=== PATIENT | female | born 1985 | race Caucasian/White ===

== ENCOUNTER 2022-10-15 21:21 | Emergency (ER) | payer BC, SELFPAY ==
[2022-10-15] VITALS (7 sets, daily range): BP systolic 117–128; BP diastolic 74–84; PULSE 94–114; RESP 16; TEMP 36.7–36.9; O2SAT 97–99
[2022-10-15] MEDS: 0.9 % SODIUM CHLORIDE 1000 ml 1,000 ML IV (22:00)
[2022-10-15] MEDS: ONDANSETRON 2 MG/ML inj 4 MG IVP (22:05)
[2022-10-15] MEDS: LORazepam 2 MG/ML inj 0.5 MG IVP (22:07)
[2022-10-15] MEDS: KETOROLAC 30 MG/ML inj IVP (22:10)
[2022-10-15] MEDS: KETAMINE HCL 20 MG in 0.9 % SODIUM CHLORIDE 100 ml 100 ML 300.6 MG IVPB (22:48)
--- NOTE | 2022-10-15 22:54 | ED.SOB ---
HPI - SOB/Dyspnea General Chief Complaint: Shortness of Breath/Dyspnea Stated Complaint: shortness of breath Time Seen by Provider: 10/15/22 21:28 History of Present Illness HPI Narrative: 37-year-old woman presenting to the emergency department via EMS she says that was called by her Irvin . Sounds like there might be underlying history of exercise-induced asthma. This evening became increasingly short of breath and could not find inhaler. They have moved recently. EMS provided oxygen and albuterol nebulizer she says and she has improved quite a bit. Seems to indicate that this event was triggered in part by trying to set up more humidified air? Was noted to be increasing her own oxygen that was applied on arrival here in the ER though accidents saturations at 97% on room air. She notes that over the last few days have been with ?SpO2 of 93%? Has had a headache over the last week and then 3 days ago tested positive for COVID which has also included or corresponded with 3 days of body aches some nausea, diarrhea? Though notes an underlying history of irritable bowel. Had high fevers. Had COVID earlier on in the days of COVID was very uncomfortable then as well. She does admit she would like treatment for her headache and aches. Feels like she is getting stabbed in the mid forehead and behind her eyes. Conversation is heavy with cussing. Works as a [employer]. Related Data Home Medications Medication Instructions Recorded Confirmed bupropion HCl 300 mg 24 hr tablet, tab PO 08/25/22 08/25/22 extended release clonazepam 1 mg tablet 1 mg PO 08/25/22 08/25/22 methylphenidate HCl 5 mg tablet 5 mg PO 08/25/22 08/25/22 pramipexole 0.25 mg tablet 0.25 mg PO 08/25/22 08/25/22 Previous Rx's Medication Instructions Recorded methocarbamol 500 mg tablet 500 mg PO TID #10 tabs 08/25/22 Allergies Allergy/AdvReac Type Severity Reaction Status Date / Time Opioids - Morphine Analogues Allergy Mild Hives Verified 08/25/22 16:52 Review of Systems Status of ROS: Reports: 6 or more systems reviewed and unremarkable except as noted in History and below [facility] Medical History Anxiety Depression History of flexible sigmoidoscopy Insomnia Migraine PTSD (post-traumatic stress disorder) Restless legs syndrome Shingles Ulcerative colitis Surgical History History of breast augmentation History of colonoscopy History of hemorrhoidectomy History of nasal septoplasty History of tonsillectomy History of wisdom tooth extraction Social History Smoking Status: Current every day smoker Second hand tobacco smoke exposure: No How often do you have a drink containing alcohol: 2-3 times a week How many standard drinks containing alcohol do you have on a typical day: 3 or 4 How often do you have six or more drinks on one occasion: Weekly AUDIT-C Alcohol total score: 7 Non-prescribed substance use: denies use Exam Narrative: Exam Narrative: Animated. Pleasant. Intense. Skin is warm dry. Extremities without edema. Moving all extremities without difficulty, good strength. Well perfused. Appears to be breathing easily. When I initially enter she is leaning forward in the bed with her head in her hands. Periodically placing hands to forehead in apparent pain. Cranial nerves 2-12 look to be intact. Neck is supple. Lungs are clear. Heart in an elevated rate and regular rhythm. Const: Vital Signs, click to edit/add: Vital Signs - 24 hr 10/15/22 21:18 10/15/22 22:10 10/15/22 23:15 Temperature 98.4 F 98.0 F 98.0 F Pulse Rate [Left P ulse Oximeter] 114 H Respiratory Rate 16 Blood Pressure [Ri ght Upper Arm] 124/84 Pulse Oximetry 97 Oxygen Delivery Me thod Room Air 10/15/22 22:00 10/15/22 22:30 10/15/22 23:00 Temperature 98.0 F 98.0 F 98.2 F Pulse Rate [Left P ulse Oximeter] 110 H 105 H 95 Respiratory Rate 16 16 16 Blood Pressure [Ri ght Upper Arm] 117/79 121/74 124/74 Pulse Oximetry 97 97 97 Oxygen Delivery Me thod Room Air Room Air Room Air 10/15/22 23:58 10/15/22 22:00 10/16/22 00:35 Temperature 98.0 F 98.0 F Pulse Rate [Left P ulse Oximeter] 94 94 Respiratory Rate 16 16 Blood Pressure [Ri ght Upper Arm] 128/84 128/84 Pulse Oximetry 97 99 Oxygen Delivery Me thod Room Air Documenting provider has reviewed patient's vital signs: yes Course Vital Signs Vital signs: Initial Vital Signs Temperature 98.4 F 10/15/22 21:18 Temperature Source Temporal Artery Scan 10/15/22 21:18 Pulse Rate 114 H 10/15/22 21:18 Respiratory Rate 16 10/15/22 21:18 Blood Pressure 124/84 10/15/22 21:18 Blood Pressure Mean 97 10/15/22 21:18 Blood Pressure Position Sitting 10/15/22 21:18 Pulse Oximetry 97 10/15/22 21:18 Oxygen Delivery Method 10/15/22 21:18 Vital Signs Temperature 98.4 F 10/15/22 21:18 Pulse Rate 114 H 10/15/22 21:18 Respiratory Rate 16 10/15/22 21:18 Blood Pressure 124/84 10/15/22 21:18 Pulse Oximetry 97 10/15/22 21:18 Oxygen Delivery Method 10/15/22 21:18 Temperature 98.0 F 10/16/22 00:35 Pulse Rate 94 10/16/22 00:35 Respiratory Rate 16 10/16/22 00:35 Blood Pressure 128/84 10/16/22 00:35 Pulse Oximetry 97 10/15/22 23:58 Oxygen Delivery Method 10/15/22 23:58 MDM - SOB/Dyspnea MDM Narrative Medical decision making narrative: Appears to be well from a respiratory standpoint at this point. I do offer treatment for headache. She would like to proceed with that. We discussed options. She suspects that NSAIDs will not be helpful but that gets a rash with opiates. I discussed ketamine as possibility which she would like to proceed with. I encouraged IV fluids and NSAIDs and going to ketamine then if necessary. IVs established receives a L of normal saline ketorolac and Zofran and lorazepam as does appear rather anxious about all of this. 20-25 minutes later is requesting ketamine. Prepared for this but encourage waiting to about 45 minutes to better evaluate effective ketorolac. Still complaining of pain. Therefore was initiated on ketamine pain dose. Nearly immediately after initiation as come planing of severe pain like her headed been sheared off. I go to evaluate. At this point though does not appear to be in distress. Is seemingly more relaxed and chatty. Contemplating departure. She received very little ketamine. Has been ill for too long time to benefit I think at this point from antivirals for COVID. Later describes how has been having so much difficulty sleeping. She would like a sleep aid. I discussed potential benefit of Zyprexa. 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 Will be sent with 2 tabs of Zyprexa. Medical Records Attestation: I reviewed the patient's medical records. Discharge Plan Discharge Clinical Impression: COVID-19, Reactive airway disease, Headache Patient Disposition: Home w/ Parent or Adult Condition: Improved Additional Instructions: Focus on hydration. If does not aggravate your stomach, can take up to 800 mg of ibuprofen or up to 1000 mg of acetaminophen per dose. Alternative to the ibuprofen might be up to 500 mg naproxen 2 times daily. Regarding the Zyprexa if really needed for sleep, take 1 tablet and repeat in 1 maybe 1-1/2 hours if still awake. I would not take anymore of your benzodiazepine tonight. Prescriptions: No Action bupropion HCl 300 mg tablet extended release 24 hr PO clonazepam 1 mg tablet 1 mg PO Label Comments: TAKE 1 AND 1/2 TABLETS BY MOUTH DAILY NEEDED FOR SLEEP OR ANXIETY methylphenidate HCl 5 mg tablet 5 mg PO Label Comments: TAKE 1 TABLET BY MOUTH TWICE DAILY pramipexole 0.25 mg tablet 0.25 mg PO methocarbamol 500 mg tablet 500 mg PO TID Qty: 10 0RF Follow Up/Referrals: Provider,Not a Local [Primary Care Provider] - Stand Alone Forms: [employer] Info Instructions
[2022-10-16 00:35] VITALS: BP 128/84; PULSE 94; RESP 16; TEMP 36.7
== END 2022-10-16 00:36 | disposition home or self-care (01) ==
PROVIDERS: Emergency Provider Family Medicine
DX: U07.1 COVID-19 (principal); J45.901 Unspecified asthma with (acute) exacerbation; R51.9 Headache, unspecified
CPT/HCPCS: 94761; 96365; 96375; 99284; J1885; J2060; J2405; J3490; J7030

== ENCOUNTER 2023-01-19 15:32 | Emergency (ER) | payer BC, SELFPAY ==
[2023-01-19 15:37] VITALS: BP 125/80; PULSE 90; RESP 20; TEMP 37.1; O2SAT 96; BMI 20.6
--- NOTE | 2023-01-19 15:41 | CRLHL7_ITS ---
For Patients: As a result of the Century Cures Act, medical imaging exams and procedure reports are released immediately into your electronic medical record. You may view this report before your referring provider. If you have questions, please contact your health care provider. INDICATION: Left-sided chest pain. TECHNIQUE: Chest 1 view. COMPARISON: 01/20/2021. FINDINGS: Cardiovascular and mediastinum: Heart size and vasculature are normal in caliber and appearance. Lungs and pleural spaces: Lung volumes are low. No sign of infiltrate or mass. No sign of pleural effusion. No pneumothorax. Bones and soft tissues: No significant findings. IMPRESSION: Low lung volumes with otherwise no evidence acute cardiopulmonary abnormality. Dictated by Lemuel Gordon MD @ 01/19/2023 4:40:39 PM (Electronically Signed)
[2023-01-19 15:57] LABS: Basophils Absolute Auto 0.01 K/uL (0.00-0.30); Basophils Percent Auto 0.1 % (0.0-3.0); Eosinophils Absolute Auto 0.11 K/uL (0.00-0.50); Hematocrit 36.9 % (33.0-51.0); Immature Granulocytes Abs Auto 0.05 K/uL (0.00-0.30); Immature Granulocytes Pct Auto 0.5 %; Lymphocytes Absolute Auto 2.36 K/uL (0.90-2.90); Lymphocytes Percent Auto 22.4 % (20-44); Mean Corpuscular HGB Conc 30 gm/dL (32-36); Mean Corpuscular Hemoglobin 27 pg (26-34); Mean Corpuscular Volume 90 fL (80-100); Monocytes Percent Auto 9.1 % (0.0-11.0); Neutrophils Absolute Auto 7.04 K/uL (1.7-7.0); Neutrophils Percent Auto 66.9 % (42.0-72.0); Platelet Count* 285 K/uL (140-440); RDW Coefficient of Variation % 22.2 % (11.5-15.5); Red Blood Count 4.09 m/uL (4.00-5.20); White Blood Count* 10.53 K/uL (4.50-11.00)
[2023-01-19 15:59] LABS: Lactate* 0.9 mmol/L (0.5-1.9)
[2023-01-19 16:00] LABS: Slide Review Reflex No
[2023-01-19 16:01] VITALS: BP 111/69
[2023-01-19] MEDS: HYDROmorphone 0.5 mg/0.5 ml inj IVP (16:01)
[2023-01-19] MEDS: 0.9 % SODIUM CHLORIDE 1000 ml 1,000 ML IV (16:02)
[2023-01-19] MEDS: KETOROLAC 30 MG/ML inj IVP (16:02)
[2023-01-19] MEDS: ONDANSETRON 2 MG/ML inj 4 MG IVP (16:02)
[2023-01-19 16:18] LABS: Albumin* 3.5 g/dL (3.3-5.0); Chloride* 103 mmol/L (96-114); Sodium* 133 mmol/L (135-149)
[2023-01-19 16:20] LABS: Creatinine* 0.5 mg/dL (0.5-1.5); Estimated Glomerular Filt Rate 122 ml/min
[2023-01-19 16:21] LABS: Alkaline Phosphatase* 59 U/L (40-150); Aspartate Amino Transferase* 18 U/L (12-35); Bilirubin Direct* 0.1 mg/dL (0.0-0.5); Bilirubin Total* 0.4 mg/dL (0.1-1.5); Blood Urea Nitrogen* 12 mg/dL (5-24); Carbon Dioxide* 26 mmol/L (20-32); Glucose* 96 mg/dL (60-115); Lipase* 21 U/L (23-300); Total Protein* 6.2 g/dL (6.0-8.3)
[2023-01-19 16:22] LABS: Alanine Aminotransferase* 42 U/L (4-35); Calcium* 8.5 mg/dL (8.4-10.6)
[2023-01-19 16:30] LABS: INR 0.91 (0.91-1.10); Prothrombin Time 12.8 Seconds
[2023-01-19 16:31] VITALS: BP 110/69
[2023-01-19 16:31] LABS: Partial Thromboplastin Time* 25 Seconds (23-33)
[2023-01-19 16:33] LABS: NT Pro B Type NatriureticPept* 67 pg/mL
--- NOTE | 2023-01-19 16:36 | ED_ITS ---
HPI - General Adult General Date Seen: 01/19/23 Chief complaint: Back Injury/Pain Stated complaint: Allergic Reaction Time Seen by Provider: 01/19/23 15:44 Source: patient and family Mode of arrival: ambulatory Limitations: no limitations History of Present Illness HPI narrative: Patient is a 37-year-old female with a recent discharge from [facility], events here with left-sided chest discomfort, this started off yesterday, is gradually been progressing, she notices the pain whenever she twists turns, but initially came in telling me she has have an anaphylactic reaction to Remicade. She started the Remicade on the , this was for ulcerative colitis, after she was hospitalized there and early December and also late December and discharged on the from [facility]. She was seen by Gastroenterology, also treated for a pulmonary embolism that occurred early in December, has been on b.i.d. treatment with Lovenox since. There is no evidence of a DVT on ultrasounds at that time. She was discharged from the hospital on the , and came to our emergency room, because it is closer, and the wait time is not so bad. Denies any hemoptysis fevers chills nausea vomiting. I am able to review the notes from admission and discharge from [facility] No history of cardiac disease, she has been taking her Lovenox faithfully, she has exhausted her supply of oxycodone that she is given at the hospital. Location: chest Radiation: non-radiation Severity: severe Quality: stabbing Pain Consistency: constant Relieving factors: none Exacerbating factors: none Associated symptoms: denies other symptoms Treatments prior to arrival: none Related Data Home Medications Medication Instructions Recorded Confirmed bupropion HCl 300 mg 24 hr tablet, tab PO 08/25/22 08/25/22 extended release clonazepam 1 mg tablet 1 mg PO 08/25/22 08/25/22 methylphenidate HCl 5 mg tablet 5 mg PO 08/25/22 08/25/22 pramipexole 0.25 mg tablet 0.25 mg PO 08/25/22 08/25/22 enoxaparin 60 mg/0.6 mL mg subcut 01/19/23 subcutaneous syringe oxycodone-acetaminophen 5 mg-325 1 tab PO QID PRN 01/19/23 01/19/23 mg tablet paroxetine HCl 20 mg tablet 20 mg PO QAM 01/19/23 01/19/23 prednisone 10 mg tablet PO 01/19/23 Previous Rx's Medication Instructions Recorded methocarbamol 500 mg tablet 500 mg PO TID #10 tabs 08/25/22 albuterol sulfate 90 mcg/actuation 2 puff inhalation QID PRN 10/16/22 aerosol inhaler shortness of breath or wheezing #8.5 grams Allergies Allergy/AdvReac Type Severity Reaction Status Date / Time Opioids - Morphine Analogues Allergy Mild Hives Verified 08/25/22 16:52 Review of Systems Status of ROS: Reports: 10 or more systems reviewed and unremarkable except as noted in History and below [facility] Medical History Anxiety ?F41.9 - Anxiety disorder, unspecified (ICD-10) Depression ?F32.A - Depression, unspecified (ICD-10) History of flexible sigmoidoscopy ?Z98.890 - Other specified postprocedural states (ICD-10) Insomnia ?G47.00 - Insomnia, unspecified (ICD-10) Migraine ?G43.909 - Migraine, unspecified, not intractable, without status migrainosus (ICD-10) PTSD (post-traumatic stress disorder) ?F43.10 - Post-traumatic stress disorder, unspecified (ICD-10) Restless legs syndrome ?G25.81 - Restless legs syndrome (ICD-10) Shingles ?B02.9 - Zoster without complications (ICD-10) Ulcerative colitis ?K51.90 - Ulcerative colitis, unspecified, without complications (ICD-10) Surgical History History of breast augmentation ?Z98.82 - Breast implant status (ICD-10) History of colonoscopy ?Z98.890 - Other specified postprocedural states (ICD-10) History of hemorrhoidectomy ?Z98.890 - Other specified postprocedural states (ICD-10) History of nasal septoplasty ?Z98.890 - Other specified postprocedural states (ICD-10) History of tonsillectomy ?Z90.89 - Acquired absence of other organs (ICD-10) History of wisdom tooth extraction ?K08.409 - Partial loss of teeth, unspecified cause, unspecified class (ICD- 10) Social History Smoking Status: Current every day smoker Second hand tobacco smoke exposure: No How often do you have a drink containing alcohol: 2-3 times a week How many standard drinks containing alcohol do you have on a typical day: 3 or 4 How often do you have six or more drinks on one occasion: Weekly AUDIT-C Alcohol total score: 7 Non-prescribed substance use: denies use Exam Narrative: Exam Narrative: Patient is initially seen in her stabilization room 2, her vital signs are normal. She is complaining of left-sided chest discomfort over her lower chest wall on the left side, she reports no history of trauma, she is able the follow my commands and set up, although she does not want to do this. Her pupils are equal round reactive to light there is no scleral icterus or redness, her TMs are normal, oropharynx is normal there is no evidence of any meningismus, her chest shows no evidence of any bruising swelling, she has good breath sounds bilaterally, she does not splint when she takes a deep breath in. Heart sounds no clicks murmurs or gallops, abdomen is soft there is no guarding no organomegaly is noted. Extremities are all show no swelling edema, she moves all extremities independently well, with absence of rashes. Const: Vital Signs, click to edit/add: Vital Signs - 24 hr 01/19/23 15:37 01/19/23 16:01 01/19/23 16:31 Temperature 98.8 F Pulse Rate [Pulse Oximeter] 90 Respiratory Rate 20 Blood Pressure 111/69 110/69 Blood Pressure [Le ft Upper Arm] 125/80 Pulse Oximetry 96 Oxygen Delivery Me thod Room Air Documenting provider has reviewed patient's vital signs: yes Course Course Hospital Course: Patient then decided she was going to leave against medical advice, she got up, and left. She was in no apparent distress walking out of the emergency room, the nurse did ask her if she wanted discharge instructions and she said no. Vital Signs Vital signs: Initial Vital Signs Temperature 98.8 F 01/19/23 15:37 Temperature Source Temporal Artery Scan 01/19/23 15:37 Pulse Rate 90 01/19/23 15:37 Respiratory Rate 20 01/19/23 15:37 Blood Pressure 125/80 01/19/23 15:37 Blood Pressure Mean 95 01/19/23 15:37 Blood Pressure Position Supine 01/19/23 15:37 Pulse Oximetry 96 01/19/23 15:37 Oxygen Delivery Method Room Air 01/19/23 15:37 Vital Signs Temperature 98.8 F 01/19/23 15:37 Pulse Rate 90 01/19/23 15:37 Respiratory Rate 20 01/19/23 15:37 Blood Pressure 125/80 01/19/23 15:37 Pulse Oximetry 96 01/19/23 15:37 Oxygen Delivery Method Room Air 01/19/23 15:37 Temperature 98.8 F 01/19/23 15:37 Pulse Rate 90 01/19/23 15:37 Respiratory Rate 20 01/19/23 15:37 Blood Pressure 110/69 01/19/23 16:31 Pulse Oximetry 96 01/19/23 15:37 Oxygen Delivery Method Room Air 01/19/23 15:37 Medical Decision Making MDM Narrative Medical decision making narrative: During the evaluation of this patient I considered multiple differential diagnosis is. The life-threatening differential diagnosis include coronary disease/VA, pulmonary embolism, pneumothorax, pneumonia, and aortic dissection. Other differential diagnosis included but were not limited to pericarditis, myocarditis, chest wall pain, GERD, esophageal rupture, rib fracture contusion, pleurisy, as well as other etiologies. I was able to review all the [address] [facility], her diagnosis of ulcerative colitis, pulmonary embolism, narcotic use. Once I told her that this is not anaphylaxis she did calmed down, she is very distractible, but still complains of pain vehemently and despite the use of Dilaudid 0.5 mg in the Toradol she is still having excessive pain. I reviewed with her that her laboratory work is all very reassuring with a normal white count normal hemoglobin normal basic metabolic profile, her chest x-ray shows no pneumothorax, is otherwise normal. In the setting of taking her Lovenox as directed I think there is a very low likelihood that this is a pulmonary embolism or worsening of her pulmonary embolism. She asked me numerous times for more narcotic medication, ice older I was uncomfortable giving her anymore, but would prescribe a muscle relaxant, for her to go home with. She then asked for more oxycodone, which I am not inclined to give her as an outpatient. Medical Records Medical records reviewed: Yes I reviewed the patient's medical records Medical records narrative: Garth Joseph recent hospitalization. Lab Data Lab results reviewed: Yes I reviewed the patient's lab results Labs: Lab Results 01/19/23 01/19/23 Range/Units 13:54 15:45 WBC 10.53 (4.50-11.00) K/uL RBC 4.09 (4.00-5.20) m/uL Hgb 11.0 L (12.0-16.0) gm/dL Hct 36.9 (33.0-51.0) % MCV 90 (80-100) fL MCH 27 (26-34) pg MCHC 30 L (32-36) gm/dL RDW Coeff of Isai 22.2 H (11.5-15.5) % Plt Count 285 (140-440) K/uL Neut % (Auto) 66.9 (42.0-72.0) % Lymph % (Auto) 22.4 (20-44) % [place] % (Auto) 9.1 (0.0-11.0) % Eos % (Auto) 1.0 (0.0-7.0) % Baso % (Auto) 0.1 (0.0-3.0) % Neut # (Auto) 7.04 H (1.7-7.0) K/uL Lymph # (Auto) 2.36 (0.90-2.90) K/uL [place] # (Auto) 1.00 H (0.00-0.90) K/UL Eos # (Auto) 0.11 (0.00-0.50) K/uL Baso # (Auto) 0.01 (0.00-0.30) K/uL Sodium 133 L (135-149) mmol/L Potassium 4.0 (3.6-5.1) mmol/L Chloride 103 (96-114) mmol/L Carbon Dioxide 26 (20-32) mmol/L BUN 12 (5-24) mg/dL Creatinine 0.5 (0.5-1.5) mg/dL Estimated Creat Clear 129.80 Estimated GFR 122 ml/min Glucose 96 (60-115) mg/dL Lactate 0.9 (0.5-1.9) mmol/L Calcium 8.5 (8.4-10.6) mg/dL Total Bilirubin 0.4 (0.1-1.5) mg/dL Direct Bilirubin 0.1 (0.0-0.5) mg/dL AST 18 (12-35) U/L ALT 42 H (4-35) U/L Alkaline Phosphatase 59 (40-150) U/L NT-Pro-B Natriuret Pep 67 pg/mL Total Protein 6.2 (6.0-8.3) g/dL Albumin 3.5 (3.3-5.0) g/dL Lipase 21 L (23-300) U/L POC Troponin I 0.00 L (0.01-0.04) ng/ml Imaging Data Chest x-ray: My impression: Negative chest x-ray poor inspiration Radiologist's impression: Patient: SRIKANTH BOURGEOIS Facility:?[facility] Patient ID:?[id number] Site Patient ID:?[id number]. Site :?[id number] Study:?XRay Chest Portable 1v-01/19/2023 4:00:44 PM Ordering Physician:Promise Fernandez Final Report: INDICATION: Left-sided chest pain. TECHNIQUE: Chest 1 view. COMPARISON: 01/20/2021. FINDINGS: Cardiovascular and mediastinum: Heart size and vasculature are normal in caliber and appearance. Lungs and pleural spaces: Lung volumes are low. No sign of infiltrate or mass. No sign of pleural effusion. No pneumothorax. Bones and soft tissues: No significant findings. IMPRESSION: Low lung volumes with otherwise no evidence acute cardiopulmonary abnormality. Dictated by Lemuel Gordon MD @ 01/19/2023 4:40:39 PM (Electronic Signature) Discharge Plan Discharge Clinical Impression: Left against medical advice, History of ulcerative colitis, Chest pain Patient Disposition: Left Against Medical Advice Condition: Stable Activity Level: No Restrictions Prescriptions: No Action bupropion HCl 300 mg tablet extended release 24 hr PO clonazepam 1 mg tablet 1 mg PO Patient Comments: TAKE 1 AND 1/2 TABLETS BY MOUTH DAILY NEEDED FOR SLEEP OR ANXIETY methylphenidate HCl 5 mg tablet 5 mg PO Patient Comments: TAKE 1 TABLET BY MOUTH TWICE DAILY pramipexole 0.25 mg tablet 0.25 mg PO methocarbamol 500 mg tablet 500 mg PO TID Qty: 10 0RF albuterol sulfate 90 mcg/actuation HFA aerosol inhaler 2 puff inhalation QID PRN (Reason: shortness of breath or wheezing) Qty: 8.5 1RF prednisone 10 mg tablet PO oxycodone-acetaminophen 5-325 mg tablet 1 tab PO QID PRN paroxetine HCl 20 mg tablet 20 mg PO QAM enoxaparin 60 mg/0.6 mL syringe subcut Follow Up/Referrals: Provider,Not a Local [Primary Care Provider] - Stand Alone [facility]: [facility] Info Instructions
--- NOTE | 2023-01-19 16:44 | ED.NURSE ---
pt pulling off monitor, went into check on pt and said she wanted to leave. did not want to talk to the doctor. dc'd iv intact.
--- NOTE | 2023-01-19 16:46 | ED.NURSE ---
Patient signed AMA paperwork. Leaves Emergency room walking with any difficulty, moving all extremities, does not appear to be in any respiratory distress at time of exiting ER.
== END 2023-01-19 16:54 | disposition left against medical advice (07) ==
PROVIDERS: Emergency Provider Family Medicine
DX: R07.9 Chest pain, unspecified (principal); Z53.29 Procedure and treatment not carried out because of patient's decision for other reasons
CPT/HCPCS: 36415; 71045; 80048; 80076; 81001; 83605; 83690; 83880; 84484; 85025; 85610; 85730; 93005; 96374; 96375; 99284; 99285; J1170; J1885; J2405; J7030

== ENCOUNTER 2024-09-30 14:41 | Outpatient (CLI) | payer BC, SELFPAY | END 2024-09-30 14:42 | disposition home or self-care (01) | LOC: NFLDREF 14:42 | PROVIDERS: Visit Provider Internal Medicine | DX: Z20.3 Contact with and (suspected) exposure to rabies (principal) | CPT/HCPCS: 86790 ==